=== PATIENT | female | born 1995 | race Caucasian/White ===

== ENCOUNTER 2020-04-27 17:34 | Emergency (ER) | payer OTHER ==
[~2020-04-27] VITALS: Ht 152.4 cm; Wt 47.2 kg
[2020-04-27] MEDS ORDERED: GUAIFENESIN200 MG PO (21:14)
[2020-04-27] MEDS ORDERED: PROAIR HFA8.5 GM IH (21:14)
[2020-04-27] MEDS ORDERED: MEDROLPACK PO (21:14)
== END 2020-04-27 21:24 | disposition home or self-care (01) ==
LOC: ER 17:34
DX: J45.901 Unspecified asthma with (acute) exacerbation (principal); J06.9 Acute upper respiratory infection, unspecified; Z03.818 Encounter for observation for suspected exposure to other biological agents ruled out

== ENCOUNTER 2021-10-12 18:15 | Emergency (ER) | payer OTHER ==
[~2021-10-12] VITALS: Ht 152.4 cm; Wt 51.7 kg
[~2021-10-12 18:15] MED LIST: GUAIFENESIN200 MG PO; MEDROLPACK PO; PROAIR HFA8.5 GM IH
== END 2021-10-12 22:19 | disposition home or self-care (01) ==
LOC: ER 18:15
DX: O20.9 Hemorrhage in early pregnancy, unspecified (principal)

== ENCOUNTER 2022-05-24 13:30 | Inpatient (IN) | payer OTHER ==
[~2022-05-24] VITALS: Ht 152.4 cm; Wt 64.4 kg
[2022-06-03] MEDS ORDERED: PRENATAL TABLE1 EAC3 PO (03:32)
[2022-06-03] MEDS ORDERED: TYLENOL EXTRA500 M2 PO (03:33)
[2022-06-05] MEDS ORDERED: IBUPROFEN400 MG PO (09:48)
== END 2022-06-05 18:16 | disposition home or self-care (01) | DRG 807 ==
LOC: LDR 06-03 03:30 → OB/GYN 06-03 14:34 → LDR 06-07 13:30
PROVIDERS: ADMIT Obstetrics & Gynecology; ATTEND Obstetrics & Gynecology
PROC: 10E0XZZ Delivery of Products of Conception, External Approach (ICD-10-PCS; principal; 2022-06-03)
PROC: 0KQM0ZZ Repair Perineum Muscle, Open Approach (ICD-10-PCS; 2022-06-03)
PROC: 4A1HXCZ Monitoring of Products of Conception, Cardiac Rate, External Approach (ICD-10-PCS; 2022-06-03)
DX: O70.1 Second degree perineal laceration during delivery (principal); Z37.0 Single live birth; Z3A.39 39 weeks gestation of pregnancy; Z20.822 Contact with and (suspected) exposure to COVID-19

== ENCOUNTER 2025-02-27 11:24 | Emergency (ER) | payer OTHER ==
[~2025-02-27] VITALS: Ht 152.4 cm; Wt 55.3 kg
[~2025-02-27 11:24] MED LIST changes: +IBUPROFEN400 MG PO; +PRENATAL TABLE1 EAC3 PO; +TYLENOL EXTRA500 M2 PO
[2025-02-27 16:18] LABS: BASO % 0.5 % (0.1-1.2); EOS # 0.29 (0.04-0.54); EOS % 2.4 % (0.7-7.0); LYMPH # 1.57 (1.18-3.74); LYMPH % 12.9 % (19.3-53.1); MEAN PLATELET VOLUME 9.60 fl (9.4-12.4); MONO # 1.22 (0.24-0.82); MONO % 10.0 % (4.7-12.5); NEUT # 8.97 (1.56-6.13); NEUT % 73.5 % (34.0-71.1); RED CELL DISTRIBUTION WIDTH 12.4 % (11.6-14.4)
[2025-02-27 16:39] LABS: COVID-19 AG NEGATIVE (NEGATIVE)
== END 2025-02-27 17:05 | disposition home or self-care (01) ==
LOC: ER 11:24
PROVIDERS: Preventive Medicine Public Health & General Preventive Medicine
DX: O99.513 Diseases of the respiratory system complicating pregnancy, third trimester (principal); J06.9 Acute upper respiratory infection, unspecified; Z3A.28 28 weeks gestation of pregnancy; Z87.09 Personal history of other diseases of the respiratory system; Z20.822 Contact with and (suspected) exposure to COVID-19